=== PATIENT | female | born 1955 | race Caucasian/White ===

== ENCOUNTER → 2023-05-11 15:56 | Outpatient (REF) | payer MEDICARE, SELFPAY | LOC: RAD 15:56 | PROVIDERS: ATTENDING PHYSICIAN Internal Medicine Critical Care Medicine; FAMILY PHYSICIAN Family Medicine | DX: R91.1 Solitary pulmonary nodule (principal) | CPT/HCPCS: 71250 ==

== ENCOUNTER → 2023-06-09 16:45 | Outpatient (REF) | payer MEDICARE, SELFPAY | LOC: MRI 3T 16:45 | PROVIDERS: ATTENDING PHYSICIAN Surgery; FAMILY PHYSICIAN Family Medicine | DX: Z12.39 Encounter for other screening for malignant neoplasm of breast (principal) | CPT/HCPCS: 77049; A9585 ==

== ENCOUNTER → 2023-12-27 12:59 | Outpatient (REF) | payer MEDICARE, SELFPAY | LOC: WDC 12:59 | PROVIDERS: ATTENDING PHYSICIAN Obstetrics & Gynecology; FAMILY PHYSICIAN Family Medicine | DX: Z12.31 Encounter for screening mammogram for malignant neoplasm of breast (principal) | CPT/HCPCS: 77063; 77067 ==

== ENCOUNTER 2024-03-25 10:46 | Outpatient (RCR) | payer MEDICARE, SELFPAY | END 2024-03-25 23:59 | disposition home or self-care (01) | LOC: RPT 10:46 | PROVIDERS: ATTENDING PHYSICIAN Obstetrics & Gynecology; FAMILY PHYSICIAN Family Medicine | DX: N81.2 Incomplete uterovaginal prolapse (principal); Z73.6 Limitation of activities due to disability | CPT/HCPCS: 97162; 97530 ==

== ENCOUNTER 2024-04-29 12:24 | Outpatient (RCR) | payer MEDICARE, SELFPAY | END 2024-04-29 23:59 | disposition home or self-care (01) | LOC: RPT 12:24 | PROVIDERS: ATTENDING PHYSICIAN Obstetrics & Gynecology; FAMILY PHYSICIAN Family Medicine | DX: N81.2 Incomplete uterovaginal prolapse (principal); Z73.6 Limitation of activities due to disability ==

== ENCOUNTER → 2024-05-13 11:26 | Outpatient (REF) | payer MEDICARE, SELFPAY | LOC: RAD 11:26 | PROVIDERS: ATTENDING PHYSICIAN Internal Medicine Critical Care Medicine; FAMILY PHYSICIAN Family Medicine | DX: R91.1 Solitary pulmonary nodule (principal) | CPT/HCPCS: 71250 ==

== ENCOUNTER 2024-05-13 13:02 | Outpatient (RCR) | payer MEDICARE, SELFPAY | END 2024-05-13 23:59 | disposition home or self-care (01) | LOC: RPT 13:02 | PROVIDERS: ATTENDING PHYSICIAN Obstetrics & Gynecology; FAMILY PHYSICIAN Family Medicine | DX: N81.2 Incomplete uterovaginal prolapse (principal); Z73.6 Limitation of activities due to disability | CPT/HCPCS: 97110; 97112; 97530 ==

== ENCOUNTER → 2024-06-19 11:21 | Outpatient (REF) | payer MEDICARE, SELFPAY | LOC: MRI 3T 11:21 | PROVIDERS: ATTENDING PHYSICIAN Surgery; FAMILY PHYSICIAN Family Medicine | DX: Z91.89 Other specified personal risk factors, not elsewhere classified (principal); N60.99 Unspecified benign mammary dysplasia of unspecified breast; R92.2 Inconclusive mammogram | CPT/HCPCS: 77049; A9585 ==

== ENCOUNTER 2024-06-19 15:09 | Outpatient (RCR) | payer MEDICARE, SELFPAY | END 2024-06-19 23:59 | disposition home or self-care (01) | LOC: RPT 15:09 | PROVIDERS: ATTENDING PHYSICIAN Obstetrics & Gynecology; FAMILY PHYSICIAN Family Medicine | DX: N81.2 Incomplete uterovaginal prolapse (principal); Z73.6 Limitation of activities due to disability | CPT/HCPCS: 97112; 97530 ==

== ENCOUNTER → 2024-12-31 12:57 | Outpatient (REF) | payer MEDICARE, SELFPAY | LOC: WDC 12:57 | PROVIDERS: ATTENDING PHYSICIAN Family Medicine | DX: Z78.0 Asymptomatic menopausal state (principal); Z12.31 Encounter for screening mammogram for malignant neoplasm of breast; Z91.89 Other specified personal risk factors, not elsewhere classified; N60.99 Unspecified benign mammary dysplasia of unspecified breast | CPT/HCPCS: 77063; 77067; 77080 ==

== ENCOUNTER 2025-02-18 06:21 | Day surgery (SDC) | payer MEDICARE, SELFPAY | END 2025-02-18 08:56 | disposition home or self-care (01) | LOC: GI 06:21 | PROVIDERS: ATTENDING PHYSICIAN Internal Medicine | DX: Z12.11 Encounter for screening for malignant neoplasm of colon (principal); D12.2 Benign neoplasm of ascending colon; D12.3 Benign neoplasm of transverse colon; K63.5 Polyp of colon; K56.2 Volvulus; K64.4 Residual hemorrhoidal skin tags; Z86.0101 Personal history of adenomatous and serrated colon polyps; Z98.890 Other specified postprocedural states | CPT/HCPCS: 45388; 45385; 45380; 88305 ==